=== PATIENT | male | born 1950 | race Caucasian/White ===

== ENCOUNTER 2018-01-18 11:00 | Outpatient (RCR) | payer MEDICARE, OTHER | END 2018-03-21 | disposition home or self-care (01) | LOC: PT | DX: S76.311D Strain of muscle, fascia and tendon of the posterior muscle group at thigh level, right thigh, subsequent encounter (principal); Y93.K1 Activity, walking an animal | CPT/HCPCS: G8978-GP; G8979-GP ==

== ENCOUNTER → 2019-04-04 | Outpatient (CLI) | payer MEDICARE, OTHER | LOC: RAD 09:56 | DX: M18.12 Unilateral primary osteoarthritis of first carpometacarpal joint, left hand (principal) ==

== ENCOUNTER 2019-04-29 12:55 | Emergency (ER) | payer MEDICARE, OTHER ==
[~2019-04-29] VITALS: Ht 172.7 cm; Wt 93.2 kg
[2019-04-29] MEDS ORDERED: CLOPIDOGREL75 M2 PO (13:05)
[2019-04-29] MEDS ORDERED: PANTOPRAZOLE SO40 MG PO (13:05)
[2019-04-29] MEDS ORDERED: LISINOPRIL10 MG PO (13:05)
[2019-04-29] MEDS ORDERED: ATORVASTATIN CA10 MG PO (13:06)
[2019-04-29] MEDS ORDERED: NEURONTIN300 MG/CAP (13:06)
[2019-04-29] MEDS ORDERED: OXYCODONE HCL10 M1 PO (13:06)
[2019-04-29] MEDS ORDERED: DESYREL DIVIDO150 M1 PO (13:06)
[2019-04-29] MEDS ORDERED: MOBIC15 M1 PO (13:07)
[2019-04-29] MEDS ORDERED: OXYCONTIN40 M1 PO (13:07)
[2019-04-29] MEDS ORDERED: CEPHALEXIN250 MG PO (13:50)
[2019-04-29 14:10] VITALS: BP 107/68
== END 2019-04-29 14:06 | disposition home or self-care (01) ==
LOC: ED 12:55
DX: L60.0 Ingrowing nail (principal); I25.10 Atherosclerotic heart disease of native coronary artery without angina pectoris; I25.2 Old myocardial infarction; Z95.0 Presence of cardiac pacemaker; Z98.890 Other specified postprocedural states; Z23 Encounter for immunization
CPT/HCPCS: 90715

== ENCOUNTER → 2020-04-10 | Outpatient (CLI) | payer MEDICARE, OTHER ==
[~2020-04-10] MED LIST: ATORVASTATIN CA10 MG PO; CEPHALEXIN250 MG PO; CLOPIDOGREL75 M2 PO; DESYREL DIVIDO150 M1 PO; LISINOPRIL10 MG PO; MOBIC15 M1 PO; NEURONTIN300 MG/CAP; OXYCODONE HCL10 M1 PO; OXYCONTIN40 M1 PO; PANTOPRAZOLE SO40 MG PO
== END ==
LOC: RAD 07:11
DX: I70.0 Atherosclerosis of aorta (principal); K40.90 Unilateral inguinal hernia, without obstruction or gangrene, not specified as recurrent; F17.201 Nicotine dependence, unspecified, in remission

== ENCOUNTER 2022-10-28 11:12 | Outpatient (RCR) | payer MEDICARE, OTHER | END 2022-11-02 | disposition home or self-care (01) | LOC: PT | DX: M54.50 Low back pain, unspecified (principal) ==